=== PATIENT | female | born 1985 | race Caucasian/White ===

== ENCOUNTER 2017-09-22 10:27 | Day surgery (SDC) | payer OTHER ==
[2017-09-22 12:28] LABS: ADD MAN DIFF? NO
[2017-09-22 12:33] LABS: BASOPHILS % 0.3 % (0.0-2.0); EOSINOPHILS # 0.1 10^3/ul (0.0-0.5); EOSINOPHILS % 0.9 % (0.0-7.0); HEMATOCRIT 36.4 % (37.0-47.0); HEMOGLOBIN 11.4 g/dl (12.0-16.0); LYMPHOCYTES % 23.7 % (15.0-51.0); MEAN CORPUSCULAR HEMOGLOBIN 24.5 pg (29.0-33.0); MEAN CORPUSCULAR HGB CONC 31.3 g/dl (32.0-37.0); MEAN CORPUSCULAR VOLUME 78.3 fl (82.0-101.0); MEAN PLATELET VOLUME 11.3 fl (7.4-10.4); MONOCYTE # 0.5 10^3/ul (0.3-0.9); MONOCYTES % 5.8 % (0.0-11.0); NEUTROPHIL # 5.9 10^3/ul (1.6-7.5); NEUTROPHILS % 69.2 % (39.0-77.0); PLATELET COUNT 207 10^3/UL (140-415); RED BLOOD COUNT 4.65 10^6/ul (4.20-5.40); RED CELL DISTRIBUTION WIDTH 14.4 % (11.5-14.5)
[2017-09-22 12:33] LABS: WHITE BLOOD COUNT 8.6 10^3/ul (4.8-10.8)
[2017-09-22 12:51] LABS: ALANINE AMINOTRANSFERASE 23 IU/L (13-69); ALBUMIN 4.4 g/dl (3.3-4.9); ALBUMIN/GLOBULIN RATIO 1.25; ALKALINE PHOSPHATASE 81 IU/L (42-121); ANION GAP 17 (8-16); ASPARTATE AMINO TRANSFERASE 17 IU/L (15-46); BILIRUBIN,INDIRECT 0.2 mg/dl (0-1.1); BILIRUBIN,TOTAL 0.2 mg/dl (0.2-1.3); CARBON DIOXIDE 25 mmol/L (21-31); CHLORIDE 105 mmol/L (97-110); GLUCOSE 90 mg/dl (70-220); TOTAL PROTEIN 7.9 g/dl (6.1-8.1)
[2017-09-22 12:52] LABS: BLOOD UREA NITROGEN 14 mg/dl (7-20); CALCIUM 9.1 mg/dl (8.4-10.2); CREATININE 0.53 mg/dl (0.44-1.00); POTASSIUM 4.3 mmol/L (3.5-5.1); SODIUM 143 mmol/L (135-144)
[2017-09-22 12:54] LABS: PARTIAL THROMBOPLASTIN TIME 27.2 Sec (25.0-35.0); PROTIME 13.3 Sec (11.9-14.9)
[2017-09-22] MEDS ORDERED: PROPOFOL 20 ML (13:24)
[2017-09-22] MEDS ORDERED: MEPERIDINE 100 MG INJ (13:24)
[2017-09-22] MEDS ORDERED: LIDOCAINE 2% (SDV) 5 ML INJ (13:24)
[2017-09-22] MEDS: FERRIC SUBSULFATE 8 GM VIAL TOP (13:45)
[2017-09-22] MEDS: STRONG IODINE 14 ML SOLUTION TOP (13:45)
[2017-09-22] MEDS: BUPIVACAINE 0.5%/EPI (SDV) 30 ML INJ (13:45)
[2017-09-22] MEDS ORDERED: CEFAZOLIN 1 GM INJ (14:00)
[2017-09-22] MEDS ORDERED: ONDANSETRON 4 MG INJ (14:00)
[2017-09-22] MEDS ORDERED: METOCLOPRAMIDE 10 MG INJ (14:01)
[2017-09-22] MEDS ORDERED: LACTATED RINGER'S 1,000 ML IV (14:22)
[2017-09-22] MEDS ORDERED: ONDANSETRON 4 MG INJ IV ×2 (14:30→15:00)
[2017-09-22] MEDS ORDERED: IBUPROFEN 600 MG TAB PO (14:30)
[2017-09-22] MEDS ORDERED: ACETAMINOPHEN 325 MG TAB PO (14:30)
[2017-09-22] MEDS ORDERED: morphine 2 MG INJ IV (14:30)
[2017-09-22] MEDS ORDERED: OXYCODONE/ACETAMINOPHEN (5/325) TAB PO ×4 (14:30→15:00)
[2017-09-22] MEDS ORDERED: MIDAZOLAM 1 MG/ML 2 ML INJ IV (15:00)
[2017-09-22] MEDS ORDERED: LABETALOL HCL 20MG INJ IV (15:00)
[2017-09-22] MEDS ORDERED: EPHEDrine SULFATE 50 MG/5 ML SYG IV (15:00)
[2017-09-22] MEDS ORDERED: hydrALAzine 20 MG INJ IV (15:00)
[2017-09-22] MEDS ORDERED: METOCLOPRAMIDE 10 MG INJ IV (15:00)
[2017-09-22] MEDS ORDERED: DIPHENHYDRAMINE 50 MG INJ IV (15:00)
[2017-09-22] MEDS ORDERED: FENTAnyl 50 MCG/ML VIAL IV ×3 (15:00)
[2017-09-22] MEDS ORDERED: HYDROmorphONE (0.2 MG/ML) 10ML SYG IV ×3 (15:00)
[2017-09-22] MEDS ORDERED: MEPERIDINE 25 MG INJ IV (15:00)
== END 2017-09-22 15:51 | disposition home or self-care (01) ==
LOC: SDS 10:27
DX: N87.9 Dysplasia of cervix uteri, unspecified (principal)
CPT/HCPCS: 57522; 80053; 84703; 85025; 85610; 85730; 86850; 86900; 86901; 88305